=== PATIENT | male | born 1960 | race Caucasian/White ===

== ENCOUNTER 2023-10-27 09:52 | Outpatient (AMB) | payer OTHER, SELFPAY ==
--- NOTE | 2023-10-27 10:02 | MHC.PC.OV ---
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 Required: No Allergies No Known Allergies Allergy (Verified 10/27/23 10:02) Medication List - Last Reconciled 10/27/23 by Ez Zazueta MD minocycline 50 mg PO DAILY Tobacco use date assessed: 10/27/23 Fall risk assessment: No Falls in past year Last assessed Fall Risk: 10/27/23 Dental Screening Dental Screen Date: 10/27/23 Did you have a dental visit in the last 12 months?: Yes Did you have a dental problem in the last 6 months where you did not have access to dental care?: No Was dental information given to patient?: Patient has dentist [facility] Medical History (Updated 10/27/23 @ 10:48 by Shaka Hurley) GERD (gastroesophageal reflux disease) Arthritis Surgical History (Updated 10/27/23 @ 10:13 by Lorenza Johnson CMA) Hx of arthroscopy of right knee H/O arthroscopy of left knee Family History (Updated 10/27/23 @ 10:13 by Lorenza Johnson CMA) Maternal Grandmother Cancer Social History (Updated 10/27/23 @ 10:04 by Lorenza Johnson CMA) Housing: House Patient Tobacco Use Status: Never used Tobacco e-Cigarette/Vaping Use: Never Used Second Hand Smoke Exposure: No service: No Current occupational status: employed 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 How often do you have a drink containing alcohol?: Never 3. How often do you have six or more drinks on one occasion?: Never Total Score: 0 Physical exam (Primary Care) Vital Signs: Last Vital Signs Pulse 48 L 10/27/23 10:08 Resp 12 10/27/23 10:08 BP 122/60 10/27/23 10:08 Pulse Ox 98 10/27/23 10:08 Oxygen Delivery Method Room Air 10/27/23 10:08 BMI result Body Mass Index 23.8 Tobacco/Smoking Status: Tobacco use Status Tobacco use date assessed 10/27/23 10/27/23 10:10 Patient Tobacco Use Status Never used Tobacco 10/27/23 10:10 e-Cigarette/Vaping Use Never Used 10/27/23 10:10 PHQ-9: PHQ-9 Score PHQ-9: Total score 0 10/27/23 10:20 Thrive Assessment: Date of Thrive Assessment Date Thrive assessed 10/27/23 10/27/23 10:14 Assessment and Plan Assessment & Plan Orders: Orders Comprehensive [place]. Panel Fast Today Z00.00 - Encounter for general adult medical examination without abnormal findings Complete Blood Count Auto Diff Today Z00.00 - Encounter for general adult medical examination without abnormal findings Lipid Panel Today Z00.00 - Encounter for general adult medical examination without abnormal findings TSH reflex Free T4 Today Z00.00 - Encounter for general adult medical examination without abnormal findings UA and rflx microscopic Today Z00.00 - Encounter for general adult medical examination without abnormal findings Microalbumin, Random (w Creat) Today I10 - Essential (primary) hypertension Prostate Specific Antigen Scr Today Z12.5 - Encounter for screening for malignant neoplasm of prostate Vitamin B12 and Folate Today E53.8 - Deficiency of other specified B group vitamins Coding
--- NOTE | 2023-10-27 10:04 | MHC.PC.OV ---
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 ?? Prior PCP:?PCP in [place]. Dr Sparrow. Last office visit/CPE:? Acute issue(s):? Degenerative changes b/L Knees ?? PMHx:??Thrombocytopenia, dysphagia?with?vocal fold?deformity, Rosacea (Derm: Lottie Olmstead), Cataract SurgHx:? B/L Arthroscopy knees. Cataract surgeries FHx:? Mom: ?GI CA. Dad: Alz. SocHx:? Nonsmoker, EtoH None. No drugs PFSH Medical History (Updated 10/27/23 @ 10:48 by Shaka Hurley) GERD (gastroesophageal reflux disease) Arthritis Surgical History (Updated 10/27/23 @ 10:13 by Lorenza Johnson CMA) Hx of arthroscopy of right knee H/O arthroscopy of left knee Family History (Updated 10/27/23 @ 10:13 by Lorenza Johnson CMA) Maternal Grandmother Cancer Social History (Updated 10/27/23 @ 10:04 by Lorenza Johnson CMA) Housing: House Patient Tobacco Use Status: Never used Tobacco e-Cigarette/Vaping Use: Never Used Second Hand Smoke Exposure: No Use of substances other than those prescribed or required for medical reasons: No service: No Current occupational status: employed 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 1. Little interest or pleasure in doing things: not at all 2. Feeling down, depressed, or hopeless: not at all 3. Trouble falling or staying asleep, or sleeping too much: not at all 4. Feeling tired or having little energy: not at all 5. Poor appetite or overeating: not at all 6. Feeling bad about yourself - or that you are a failure or have let yourself or your family down: not at all 7. Trouble concentrating on things, such as reading the newspaper or watching television: not at all 8. Moving or speaking so slowly that other people could have noticed. Or the opposite - being so fidgety or restless that you have been moving around a lot more than usual: not at all 9. Thoughts that you would be better off or of hurting yourself in some way: not at all Total score: 0 Depression Screening Interpretation: Negative Depression Screening Done: Yes 22645 - PHQ-9 Billing: Yes Source: Developed by Drs. Car Chiang, Beatrice Joy, Sergio Bills and colleagues, with an educational isaac from [employer]. Thrive Questionnaire Date Thrive assessed: 10/27/23 I am a: Patient What is your living situation today?: I have a steady place to live Within the past 12 months, did the food you bought not last and you didn't have the money to get more?: Never true Within the past 12 months, did you worry whether your food would run out before you got money to buy more?: Never true Do you have trouble paying for medicines?: No Do you have trouble getting transportation to medical appointments?: No Do you have trouble paying your heating and electricity bill?: No Do you have trouble taking care of your child, family member or friend?: No Do you have trouble with day-to-day activities such as bathing, preparing meals, shopping, managing finances, etc.?: No Are you currently unemployed and looking for a job?: No Are you interested in more education?: No Please select the resources that you would like help with: None Currently or been in a relationship where the following occur: No concerns reported THRIVE Score: 0 AUDIT C Alcohol Use Questionnaire (AUDIT-C) 1. How often do you have a drink containing alcohol?: Never 3. How often do you have six or more drinks on one occasion?: Never Total Score: 0 ANTELMO-7 AMB Questionnaire ANTELMO-7 Date ANTELMO - 7 assessed: 10/27/23 Feeling nervous, anxious, or on edge: 0 = Not at all Not being able to stop or control worryin = Not at all Worrying too much about different things: 0 = Not at all Trouble relaxin = Not at all Being so restless that it is hard to sit still: 0 = Not at all Becoming easily annoyed or irritable: 0 = Not at all Feeling afraid as if something awful might happen: 0 = Not at all Total ANTELMO-7 score (0-4 normal; 5-9 mild; 10-14 moderate; 15-21 severe): 0 Source: Developed by Drs. Car Chiang, Beatrice Joy, Sergio Bills and colleagues, with an educational isaac from [employer]. ANTELMO-7 Assessment Billing ANTELMO-7 Assessment Tool: ANTELMO-7 Assessment 07946 Review of Systems Const Denies chills, Denies fatigue, Denies fever(s), Denies headache(s) and Denies weakness ENT Denies dizziness and Denies headache(s) Card Denies chest pain, Denies lightheadedness, Denies dyspnea and Denies other (Palpitations) Resp Denies cough, Denies dyspnea, Denies wheezing and Denies other ( shortness of breath) Musc Denies numbness and Denies tingling Neuro Denies dizziness, Denies headache(s), Denies numbness, Denies tingling, Denies paresthesias and Denies weakness Psych Denies anxiety and Denies depression Endo Denies fatigue Aller/Immun Denies wheezing Physical exam (Primary Care) Vital Signs: Last Vital Signs Pulse 48 L 10/27/23 10:08 Resp 12 10/27/23 10:08 BP 122/60 10/27/23 10:08 Pulse Ox 98 10/27/23 10:08 Oxygen Delivery Method Room Air 10/27/23 10:08 BMI result Body Mass Index 23.8 Tobacco/Smoking Status: Tobacco use Status Tobacco use date assessed 10/27/23 10/27/23 10:10 Patient Tobacco Use Status Never used Tobacco 10/27/23 10:10 e-Cigarette/Vaping Use Never Used 10/27/23 10:10 PHQ-9: PHQ-9 Score PHQ-9: Total score 0 10/27/23 10:14 Depression Screening Interpretation: Negative Thrive Assessment: Date of Thrive Assessment Date Thrive assessed 10/27/23 10/27/23 10:14 Currently or been in a relationship where the following occur: No concerns reported Const General: no acute distress and well developed Nutritional Appearance: well nourished Orientation/consciousness: patient oriented x3 [facility] Head: Yes normocephalic and Yes atraumatic Eyes General: appearance normal, both eyes and all related structures Pupils: Equal, round and reactive pupils present EOM: EOMs intact bilaterally Resp Effort & Inspection: normal respiratory effort Auscultation: clear to auscultation bilaterally Cardio Rate: regular rate Rhythm: regular rhythm Heart sounds: S1 normal heart sound present, S2 normal heart sound present, no gallops, Murmur heart sound present (2/6 systolic murmur ) and no rubs Neuro General: patient oriented x3 and gait normal Cranial nerves: Yes Equal, round and reactive pupils present Psych Affect: normal affect Assessment and Plan Assessment & Plan (1) Thrombocytopenia: Code(s): D69.6 - Thrombocytopenia, unspecified Plan: Longstanding?thrombocytopenia?which?has?been?worked?up?previously. Asymptomatic Will?follow (2) Dysphagia: Code(s): R13.10 - Dysphagia, unspecified Plan: History?of?dysphagia?with?dry?foods. Small?vocal?fold?abnormality?was?seen?on?prior?barium?swallow?test Speech?language?pathology?had?recommended?avoiding?dry?foods No?further?workup?necessary?at?this?time (3) Rosacea: Code(s): L71.9 - Rosacea, unspecified Plan: He?is?on?minocycline Follow-up?with?dermatology?as?recommended (4) Bilateral knee pain: Code(s): M25.561 - Pain in right knee; M25.562 - Pain in left knee Plan: History?of?degenerative?arthritis?of?the?knee Encouraged?he?keep?quadriceps?strong He?will?let?me?know?if?he?wants?to?start?physical?therapy?or?a?referral?to?Ortho - he?declines?these?for?now (5) Heart murmur: Code(s): R01.1 - Cardiac murmur, unspecified Plan: Lifelong?murmur-benign (6) Screening for colon cancer: Code(s): Z12.11 - Encounter for screening for malignant neoplasm of colon Plan: History?of?colonoscopy?about?5?years?ago. He?says?he?was?told?to?follow-up?subsequently?with?Cologuard?tests?in?the?future Will?follow-up?on?this?at?next?visit (7) Laboratory exam ordered as part of routine general medical examination: Code(s): Z00.00 - Encounter for general adult medical examination without abnormal findings Plan: Check?labs Orders: Orders Comprehensive [place]. Panel Fast Today Z00.00 - Encounter for general adult medical examination without abnormal findings Complete Blood Count Auto Diff Today Z00.00 - Encounter for general adult medical examination without abnormal findings Lipid Panel Today Z00.00 - Encounter for general adult medical examination without abnormal findings TSH reflex Free T4 Today Z00.00 - Encounter for general adult medical examination without abnormal findings UA and rflx microscopic Today Z00.00 - Encounter for general adult medical examination without abnormal findings Microalbumin, Random (w Creat) Today I10 - Essential (primary) hypertension Prostate Specific Antigen Scr Today Z12.5 - Encounter for screening for malignant neoplasm of prostate Vitamin B12 and Folate Today E53.8 - Deficiency of other specified B group vitamins Coding Level of Care Code New Pt Level 4 (61138) Diagnoses Thrombocytopenia D69.6 Dysphagia R13.10 Rosacea L71.9 Bilateral knee pain M25.561; M25.562 Heart murmur R01.1 Screening for colon cancer Z12.11 Laboratory exam ordered as part of routine general medical examination Z00.00 Additional Codes ANTELMO-7 Assessment Billing - ANTELMO-7 Assessment Tool: ANTELMO-7 Assessment [id number] ([id number])
[2023-10-27 10:08] VITALS: BP 122/60; PULSE 48; RESP 12; O2SAT 98; BMI 23.8
== END 2023-10-27 10:58 | disposition home or self-care (01) ==
PROVIDERS: PCP Family Medicine; Visit Provider Family Medicine
DX: D69.6 Thrombocytopenia, unspecified (principal); R13.10 Dysphagia, unspecified; L71.9 Rosacea, unspecified; M25.561 Pain in right knee; M25.562 Pain in left knee; R01.1 Cardiac murmur, unspecified; Z12.11 Encounter for screening for malignant neoplasm of colon
CPT/HCPCS: 99204

== ENCOUNTER 2024-01-18 08:07 | Outpatient (REF) | payer OTHER, SELFPAY ==
[2024-01-18 10:39] LABS: MANUAL DIFF FLAG NO
[2024-01-18 10:48] LABS: Basophils Percent Auto 0.5 % (0-2); Eosinophils Absolute Auto 0.1 X10*3/uL (0.0-0.4); Eosinophils Percent Auto 2.2 % (0-4); Hematocrit 42.5 % (42.0-52.0); Hemoglobin 14.5 g/dl (14.0-18.0); Imm Gran Abs Auto 0.02 X10*3/uL (0.00-0.03); Imm Gran Pct Auto 0.5 % (0.0-0.4); Lymphocytes Percent Auto 24.9 % (20-40); Mean Corpuscular HGB Conc 34.1 g/dl (31.0-36.0); Mean Corpuscular Hemoglobin 29.4 pg (27.0-33.0); Mean Corpuscular Volume 86.2 fL (80.0-98.0); Monocytes Absolute Auto 0.3 X10*3/uL (0.1-1.2); Monocytes Percent Auto 6.7 % (2-11); Neutrophils Absolute Auto 2.7 x10*3/uL (2.0-8.3); Neutrophils Percent Auto 65.2 % (45-73); Red Blood Count 4.93 X10*6/uL (4.60-5.80); Red Cell Distribution Width 14.2 % (11.0-16.0); White Blood Count 4.2 X10*3/uL (4.8-10.8)
[2024-01-18 11:07] LABS: Alanine Aminotransferase 22 U/L (0-40); Albumin Level 4.2 g/dL (3.5-5.0); Alkaline Phosphatase 85 U/L (39-117); Anion Gap 10 (12-20); Aspartate Amino Transferase 23 U/L (5-37); Bilirubin Total 1.6 mg/dL (0.0-1.0); Blood Urea Nitrogen 19 mg/dL (9-16); Calcium 9.8 mg/dL (8.4-10.2); Carbon Dioxide 29 mmol/L (22-29); Chloride 107 mmol/L (96-108); Cholesterol 151 mg/dL (<200); Estimated Glomerular Filt Rate > 60; Glucose Fasting 102 mg/dL (60-99); HDL Cholesterol 36 mg/dL (>40); LDL Cholesterol Calculated 94 mg/dL (<100); Potassium 4.3 mmol/L (3.3-5.1); Sodium 142 mmol/L (135-145); Total Protein 6.8 g/dL (6.5-8.0); Triglycerides 107 mg/dL (<150)
[2024-01-18 11:38] LABS: Folate 8.3 ng/mL (> or = 4.0); Prostate Specific Antigen Scr 2.89 ng/mL (<0.05-4.0); Vitamin B12 467 pg/mL (200-900)
[2024-01-18 11:44] LABS: Platelet Count 74 X10*3/uL (160-400)
[2024-01-18 13:56] LABS: Appearance Urine Clear; Color Urine Yellow; Glucose Urine UA Negative (Negative); Leukocyte Esterase Urine Negative (Negative); Nitrite Urine Negative (Negative); PH 5.5 (5.0-9.0); Urine Blood Negative (Negative); Urine Ketones Negative (Negative); Urine Protein Negative (Neg-Trace)
[2024-01-18 14:13] LABS: Creatinine Urine 143.59 mg/dL; Microalbum/Creatinine Ratio Ur 7.6 ug/mg cr (<30)
== END 2024-01-18 08:08 | disposition home or self-care (01) ==
LOC: HO.WFDLDS 08:07
PROVIDERS: Visit Provider Family Medicine
DX: Z00.00 Encounter for general adult medical examination without abnormal findings (principal); I10 Essential (primary) hypertension; E53.8 Deficiency of other specified B group vitamins; Z12.5 Encounter for screening for malignant neoplasm of prostate
CPT/HCPCS: 36415; 80053; 80061; 81003; 82043; 82570; 82607; 82746; 84153; 84443; 85025

== ENCOUNTER 2024-01-22 09:05 | Outpatient (AMB) | payer OTHER, SELFPAY ==
--- NOTE | 2024-01-22 09:11 | A.OFFPC_ITS ---
Vital Signs 01/22/24 09:14 Height 6 ft 0.25 in Weight 177 lb BMI 23.8 BP 117/58 L Blood Pressure Location Rt brachial Position Sitting Respiration 14 Pulse 59 Pulse Source Pulse Oximeter Temp 98.8 F Temp Source Temporal Artery Scan Pulse Oximetry (%) 100 Oxygen Delivery Method Room Air Intake Visit Reasons: CPE with f/u labs and health maint. 30 mins Intake Note: CPE Allergies No Known Allergies Allergy (Verified 01/22/24 09:12) Medication List - Last Reconciled 01/22/24 by Ez Zazueta MD minocycline 50 mg PO DAILY Tobacco use date assessed: 01/22/24 Fall risk assessment: No Falls in past year Last assessed Fall Risk: 01/22/24 Dental Screening Dental Screen Date: 01/22/24 Did you have a dental visit in the last 12 months?: Yes Did you have a dental problem in the last 6 months where you did not have access to dental care?: No Was dental information given to patient?: Patient has dentist HPI CPE with f/u labs and health maint. 30 mins HPI Details 63 y/o male presents for a CPE with f/u labs and health maintenance. Labs drawn 01/18/24. Reviewed labs with pt. Plt low at 74. Triglycerides 107. TC 151. LDL 94. HDL low at 36. PSA 2.89. He states he has not been doing much exercise. HPI Comments History of Present Illness Details Documentation assistance for Ez Zazueta MD, was provided by Shaka Hurley, Thread Clipper on 01/22/2024 at 9:34 AM EST. I, Dr. Zazueta, have read, observed, and verified documentation. PFSH Medical History (Updated 01/22/24 @ 09:18 by Shaka Hurley) GERD (gastroesophageal reflux disease) Arthritis Surgical History (Updated 10/27/23 @ 10:13 by Lorenza Johnson CMA) Hx of arthroscopy of right knee H/O arthroscopy of left knee Family History (Updated 10/27/23 @ 10:13 by Lorenza Johnson CMA) Maternal Grandmother Cancer Social History (Updated 01/22/24 @ 09:13 by MOISES Pepper) Housing: House Patient Tobacco Use Status: Never used Tobacco e-Cigarette/Vaping Use: Never Used Second Hand Smoke Exposure: No Use of substances other than those prescribed or required for medical reasons: No service: No Current occupational status: employed 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 1. Little interest or pleasure in doing things: not at all 2. Feeling down, depressed, or hopeless: not at all 3. Trouble falling or staying asleep, or sleeping too much: not at all 4. Feeling tired or having little energy: not at all 5. Poor appetite or overeating: not at all 6. Feeling bad about yourself - or that you are a failure or have let yourself or your family down: not at all 7. Trouble concentrating on things, such as reading the newspaper or watching television: not at all 8. Moving or speaking so slowly that other people could have noticed. Or the opposite - being so fidgety or restless that you have been moving around a lot more than usual: not at all 9. Thoughts that you would be better off or of hurting yourself in some way: not at all Total score: 0 Depression Screening Interpretation: Negative Depression Screening Done: Yes 18141 - PHQ-9 Billing: Yes Source: Developed by Drs. Car Chiang, Beatrice Joy, Sergio Bills and colleagues, with an educational isaac from [employer]. Thrive Questionnaire Date Thrive assessed: 01/22/24 I am a: Patient What is your living situation today?: I have a steady place to live Within the past 12 months, did the food you bought not last and you didn't have the money to get more?: Never true Within the past 12 months, did you worry whether your food would run out before you got money to buy more?: Never true Do you have trouble paying for medicines?: No Do you have trouble getting transportation to medical appointments?: No Do you have trouble paying your heating and electricity bill?: No Do you have trouble taking care of your child, family member or friend?: No Do you have trouble with day-to-day activities such as bathing, preparing meals, shopping, managing finances, etc.?: No Are you currently unemployed and looking for a job?: No Are you interested in more education?: No Please select the resources that you would like help with: None Currently or been in a relationship where the following occur: No concerns reported THRIVE Score: 0 AUDIT C Alcohol Use Questionnaire (AUDIT-C) 1. How often do you have a drink containing alcohol?: Never 3. How often do you have six or more drinks on one occasion?: Never Total Score: 0 Score Reviewed/Action Taken: Yes ANTELMO-7 AMB Questionnaire ANTELMO-7 Date ANTELMO - 7 assessed: 01/22/24 Feeling nervous, anxious, or on edge: 0 = Not at all Not being able to stop or control worryin = Not at all Worrying too much about different things: 0 = Not at all Trouble relaxin = Not at all Being so restless that it is hard to sit still: 0 = Not at all Becoming easily annoyed or irritable: 0 = Not at all Feeling afraid as if something awful might happen: 0 = Not at all Total ANTELMO-7 score (0-4 normal; 5-9 mild; 10-14 moderate; 15-21 severe): 0 Source: Developed by Drs. Car Chiang, Beatrice Joy, Sergio Bills and colleagues, with an educational isaac from [employer]. ANTELMO-7 Assessment Billing ANTELMO-7 Assessment Tool: ANTELMO-7 Assessment 60841 Review of Systems Const Denies chills, Denies fatigue, Denies fever(s), Denies headache(s) and Denies weakness Eyes Denies change in vision ENT Denies dizziness, Denies headache(s), Denies hearing loss, Denies nasal congestion, Denies sinus pain, Denies sinus pressure and Denies sore throat Card Denies chest pain, Denies lightheadedness, Denies dyspnea and Denies other (palpitations) Resp Denies cough, Denies dyspnea and Denies wheezing GI Denies abdominal pain, Denies melena, Denies hematochezia, Denies change in bowel habits, Denies dyspepsia and Denies nausea Denies hematuria and Denies dysuria Musc Denies abnormal gait, Denies myalgias, Denies arthralgias, Denies numbness and Denies tingling Skin/Breast Denies rash, Denies unusual bruising and Denies wounds Neuro Denies abnormal gait, Denies dizziness, Denies headache(s), Denies memory loss, Denies numbness, Denies Sensory deficit (Neuro), Denies tingling and Denies weakness Psych Denies anxiety, Denies depression and Denies memory loss Endo Denies cold intolerance, Denies fatigue, Denies heat intolerance, Denies polydipsia and Denies polyuria Pepe/Lymph Denies easy bleeding and Denies easy bruising Aller/Immun Denies wheezing Physical exam (Primary Care) Vital Signs: Last Vital Signs Temp 98.8 F 01/22/24 09:14 Pulse 59 01/22/24 09:14 Resp 14 01/22/24 09:14 BP 117/58 L 01/22/24 09:14 Pulse Ox 100 01/22/24 09:14 Oxygen Delivery Method Room Air 01/22/24 09:14 BMI result Body Mass Index 23.8 Tobacco/Smoking Status: Tobacco use Status Tobacco use date assessed 01/22/24 01/22/24 09:17 Patient Tobacco Use Status Never used Tobacco 01/22/24 09:17 e-Cigarette/Vaping Use Never Used 01/22/24 09:17 PHQ-9: PHQ-9 Score PHQ-9: Total score 0 01/22/24 09:17 Depression Screening Interpretation: Negative Thrive Assessment: Date of Thrive Assessment Date Thrive assessed 01/22/24 01/22/24 09:17 Currently or been in a relationship where the following occur: No concerns reported Const General: no acute distress, well developed, alert and awake Nutritional Appearance: well nourished Orientation/consciousness: patient oriented x3 HENMT Head: Yes normocephalic and Yes atraumatic Ears: hearing grossly normal bilaterally and TM's normal bilaterally General nose exam: Normal external nose present and Normal nares present Mouth: Normal oral and palatal mucosa present and moist mucous membranes Teeth and gingiva: dentition normal Throat: Yes posterior oropharynx normal Eyes General: appearance normal, both eyes and all related structures Pupils: Equal, round and reactive pupils present and Pupil accommodation reflex normal EOM: EOMs intact bilaterally Neck Neck: Yes normal visual inspection, Yes no lymphadenopathy and Yes trachea midline Thyroid: Thyroid normal Carotids: no bruits Lymphatic: no lymphadenopathy noted Chest Chest palpation & inspection: normal inspection of the chest Resp Effort & Inspection: normal respiratory effort Auscultation: clear to auscultation bilaterally Cardio Rate: regular rate Rhythm: regular rhythm Heart sounds: S1 normal heart sound present, S2 normal heart sound present, no gallops, Murmur heart sound present and no rubs Bruits: no abdominal aortic bruits and no carotid bruits GI Palpation (GI): No Abdominal aortic bruit present, Soft to palpation, nontender, No hepatosplenomegaly present and No Rebound tenderness present Auscultation: normal bowel sounds General: Yes no CVA tenderness Back/Spine/Pelvis Back: no CVA tenderness Cervical Spine: cervical ROM normal and No Cervical spine tenderness Thoracic/Lumbar Spine: thoraco-lumbar ROM normal, No pain with thoraco-lumbar ROM, No thoracic spinal tenderness and No lumbar spinal tenderness Skin Lesions: no lesions Rashes: no rashes Trauma: no lacerations or abrasions Wounds: no wounds Nails: normal Neuro General: patient oriented x3 Cranial nerves: Yes Equal, round and reactive pupils present Cognition (Neuro): normal cognition Gait exam (Neuro): Normal gait present Motor exam (neuro): 5/5 motor strength present throughout Sensory Exam: No Sensory deficit (Neuro) Deep tendon reflexes (DTR's): Right patellar reflex intensity grade: 2+ and Left patellar reflex intensity grade: 2+ Extrem General: Yes normal to inspection and No edema Psych Appearance: grossly normal Affect: normal affect Attitude: cooperative Thought process: Normal thought process present Coding Level of Care Code Est Pt Prev Care >65y(74460) Diagnoses Adult general medical exam Z00.00 Thrombocytopenia D69.6 Heart murmur R01.1 Screening for colon cancer Z12.11 Screening for prostate cancer Z12.5 Low HDL (under 40) E78.6 Additional Codes ANTELMO-7 Assessment Billing - ANTELMO-7 Assessment Tool: ANTELMO-7 Assessment 64708 ([id number]) Assessment & Plan Assessment & Plan (1) Adult general medical exam: Code(s): Z00.00 - Encounter for general adult medical examination without abnormal find ings Category: Medical Plan: 63-year-old?male?presents?for?complete?physical?exam Encouraged?healthy?diet?with?active?lifestyle?and?plenty?of?exercise (2) Thrombocytopenia: Code(s): D69.6 - Thrombocytopenia, unspecified Category: Medical Plan: Patient?notes?a?lifelong?thrombocytopenia?which?has?been?worked?up?in?the?past. Stable He?will?let?me?know?if?he?has?any?bleeding?issues?but?at?this?time?he?does?not. (3) Heart murmur: Code(s): R01.1 - Cardiac murmur, unspecified Category: Medical Plan: Lifelong?murmur Unchanged Stable (4) Screening for colon cancer: Code(s): Z12.11 - Encounter for screening for malignant neoplasm of colon Category: Medical Plan: Patient?had?colonoscopy?at?age?58?and?was?told?to?follow-up?in?10?years?and?coul d?follow-up?by?Cologuard?test. Up-to-date (5) Screening for prostate cancer: Code(s): Z12.5 - Encounter for screening for malignant neoplasm of prostate Category: Medical Plan: PSA?was?within?normal?range Will?continue?to?follow?annual (6) Low HDL (under 40): Code(s): E78.6 - Lipoprotein deficiency Category: Medical Plan: Mildly?low?HDL.??Encouraged?exercise
[2024-01-22 09:14] VITALS: BP 117/58; PULSE 59; RESP 14; TEMP 37.1; O2SAT 100; BMI 23.8
== END 2024-01-22 09:53 | disposition home or self-care (01) ==
PROVIDERS: PCP Family Medicine; Visit Provider Family Medicine
DX: Z00.00 Encounter for general adult medical examination without abnormal findings (principal); D69.6 Thrombocytopenia, unspecified; R01.1 Cardiac murmur, unspecified; Z12.11 Encounter for screening for malignant neoplasm of colon; Z12.5 Encounter for screening for malignant neoplasm of prostate; E78.6 Lipoprotein deficiency

== ENCOUNTER → 2024-01-22 09:05 | Outpatient (BNVA) | payer OTHER, SELFPAY | PROVIDERS: PCP Family Medicine; Visit Provider Family Medicine | DX: Z00.00 Encounter for general adult medical examination without abnormal findings (principal); D69.6 Thrombocytopenia, unspecified; R01.1 Cardiac murmur, unspecified; E78.6 Lipoprotein deficiency | CPT/HCPCS: 96127 ==

== ENCOUNTER 2025-01-27 15:58 | Outpatient (AMB) | payer OTHER, SELFPAY ==
--- NOTE | 2025-01-27 16:01 | MHC.PC.OV ---
Vital Signs 01/27/25 16:06 Height 6 ft 1 in Weight 176 lb BMI 23.2 BP 116/62 Blood Pressure Location Rt brachial Position Sitting Respiration 14 Pulse 58 Pulse Source Pulse Oximeter Temp 98.5 F Temp Source Temporal Artery Scan Pulse Oximetry (%) 99 Oxygen Delivery Method Room Air Intake Visit Reasons: CPE with f/u labs and health maint. Intake Note: Carmelo presents in the office today for his annual physical and follow up to lab results. Patient has been experimenting with taking prednisone that was prescribed to his for sciatica pain. Allergies No Known Allergies Allergy (Verified 01/27/25 16:04) Medication List - Last Reconciled 01/27/25 by Ez Zazueta MD No Known Home Meds Tobacco use date assessed: 01/27/25 Dental Screening Dental Screen Date: 01/27/25 Did you have a dental visit in the last 12 months?: Yes Did you have a dental problem in the last 6 months where you did not have access to dental care?: No Was dental information given to patient?: Patient has dentist HPI CPE with f/u labs and health maint. HPI Details 64 y/o male presents for a CPE with f/u labs and health maint. No recent labs to review. Does have hx of elevated fasting glucose. Reports episode of back pain that radiated down to upper buttocks. HPI Comments History of Present Illness Details Documentation assistance for Ez Zazueta MD, was provided by Shaka Hurley,? [employer] Salesperson on 01/27/2025 at 4:22 PM EST. I, Dr. Zazueta, have read, observed, and verified documentation. ?? 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 1. Little interest or pleasure in doing things: not at all 2. Feeling down, depressed, or hopeless: not at all 3. Trouble falling or staying asleep, or sleeping too much: not at all 4. Feeling tired or having little energy: not at all 5. Poor appetite or overeating: not at all 6. Feeling bad about yourself - or that you are a failure or have let yourself or your family down: not at all 7. Trouble concentrating on things, such as reading the newspaper or watching television: not at all 8. Moving or speaking so slowly that other people could have noticed. Or the opposite - being so fidgety or restless that you have been moving around a lot more than usual: not at all 9. Thoughts that you would be better off or of hurting yourself in some way: not at all Total score: 0 Depression Screening Interpretation: Negative Depression Screening Done: Yes 60518 - PHQ-9 Billing: Yes Source: Developed by Drs. Car Chiang, Beatrice Joy, Sergio Bills and colleagues, with an educational isaac from [employer]. Thrive Questionnaire Date Thrive assessed: 01/27/25 I am a: Patient What is your living situation today?: I have a steady place to live Within the past 12 months, did the food you bought not last and you didn't have the money to get more?: Never true Within the past 12 months, did you worry whether your food would run out before you got money to buy more?: Never true Do you have trouble paying for medicines?: No Do you have trouble getting transportation to medical appointments?: No Do you have trouble paying your heating and electricity bill?: No Do you have trouble taking care of your child, family member or friend?: No Do you have trouble with day-to-day activities such as bathing, preparing meals, shopping, managing finances, etc.?: No Are you currently unemployed and looking for a job?: No Are you interested in more education?: No Please select the resources that you would like help with: None Currently or been in a relationship where the following occur: No concerns reported THRIVE Score: 0 AUDIT C Alcohol Use Questionnaire (AUDIT-C) 1. How often do you have a drink containing alcohol?: Never 3. How often do you have six or more drinks on one occasion?: Never Total Score: 0 ANTELMO-7 AMB Questionnaire ANTELMO-7 Date ANTELMO - 7 assessed: 01/27/25 Feeling nervous, anxious, or on edge: 0 = Not at all Not being able to stop or control worryin = Not at all Worrying too much about different things: 0 = Not at all Trouble relaxin = Not at all Being so restless that it is hard to sit still: 0 = Not at all Becoming easily annoyed or irritable: 0 = Not at all Feeling afraid as if something awful might happen: 0 = Not at all Total ANTELMO-7 score (0-4 normal; 5-9 mild; 10-14 moderate; 15-21 severe): 0 Source: Developed by Drs. Car Chiang, Beatrice Joy, Sergio Bills and colleagues, with an educational isaac from [employer]. ANTELMO-7 Assessment Billing ANTELMO-7 Assessment Tool: ANTELMO-7 Assessment 41593 Review of Systems Const Denies chills, Denies fatigue, Denies fever(s), Denies headache(s) and Denies weakness Eyes Denies change in vision ENT Denies dizziness, Denies headache(s), Denies hearing loss, Denies nasal congestion, Denies sinus pain, Denies sinus pressure and Denies sore throat Card Denies chest pain, Denies lightheadedness, Denies dyspnea and Denies other (palpitations) Resp Denies cough, Denies dyspnea and Denies wheezing GI Denies abdominal pain, Denies melena, Denies hematochezia, Denies change in bowel habits, Denies dyspepsia and Denies nausea Denies hematuria and Denies dysuria Musc Denies abnormal gait, Reports back pain, Denies myalgias, Denies arthralgias, Denies numbness and Denies tingling Skin/Breast Denies rash, Denies unusual bruising and Denies wounds Neuro Denies abnormal gait, Denies dizziness, Denies headache(s), Denies memory loss, Denies numbness, Denies Sensory deficit (Neuro), Denies tingling and Denies weakness Psych Denies anxiety, Denies depression and Denies memory loss Endo Denies cold intolerance, Denies fatigue, Denies heat intolerance, Denies polydipsia and Denies polyuria Pepe/Lymph Denies easy bleeding and Denies easy bruising Aller/Immun Denies wheezing Physical exam (Primary Care) Vital Signs: Last Vital Signs Temp 98.5 F 01/27/25 16:06 Pulse 58 01/27/25 16:06 Resp 14 01/27/25 16:06 BP 116/62 01/27/25 16:06 Pulse Ox 99 01/27/25 16:06 Oxygen Delivery Method Room Air 01/27/25 16:06 BMI result Body Mass Index 23.2 Tobacco/Smoking Status: Tobacco use Status Tobacco use date assessed 01/27/25 01/27/25 16:09 Patient Tobacco Use Status Never used Tobacco 01/27/25 16:05 e-Cigarette/Vaping Use Never Used 01/27/25 16:05 PHQ-9: PHQ-9 Score PHQ-9: Total score 0 01/27/25 16:14 Depression Screening Interpretation: Negative Thrive Assessment: Date of Thrive Assessment Date Thrive assessed 01/27/25 01/27/25 16:03 Currently or been in a relationship where the following occur: No concerns reported Const General: no acute distress, well developed, alert and awake Nutritional Appearance: well nourished Orientation/consciousness: patient oriented x3 HENMT Other: Lump to the R of midline, anterior throat Head: Yes normocephalic and Yes atraumatic Ears: hearing grossly normal bilaterally and TM's normal bilaterally General nose exam: Normal external nose present and Normal nares present Mouth: Normal oral and palatal mucosa present and moist mucous membranes Teeth and gingiva: dentition normal Throat: Yes posterior oropharynx normal Eyes General: appearance normal, both eyes and all related structures Pupils: Equal, round and reactive pupils present and Pupil accommodation reflex normal EOM: EOMs intact bilaterally Neck Neck: Yes normal visual inspection, Yes no lymphadenopathy and Yes trachea midline Thyroid: Thyroid normal Carotids: no bruits Lymphatic: no lymphadenopathy noted Chest Chest palpation & inspection: normal inspection of the chest Resp Effort & Inspection: normal respiratory effort Auscultation: clear to auscultation bilaterally Cardio Rate: regular rate Rhythm: regular rhythm Heart sounds: S1 normal heart sound present, S2 normal heart sound present, no gallops, no murmurs and no rubs Bruits: no abdominal aortic bruits and no carotid bruits GI Palpation (GI): No Abdominal aortic bruit present, Soft to palpation, nontender, No hepatosplenomegaly present and No Rebound tenderness present Auscultation: normal bowel sounds General: Yes no CVA tenderness Back/Spine/Pelvis Back: no CVA tenderness Cervical Spine: cervical ROM normal and No Cervical spine tenderness Thoracic/Lumbar Spine: thoraco-lumbar ROM normal, No pain with thoraco-lumbar ROM, No thoracic spinal tenderness and No lumbar spinal tenderness Skin Lesions: no lesions Rashes: no rashes Trauma: no lacerations or abrasions Wounds: no wounds Nails: normal Neuro General: patient oriented x3 Cranial nerves: Yes Equal, round and reactive pupils present Cognition (Neuro): normal cognition Gait exam (Neuro): Normal gait present Motor exam (neuro): 5/5 motor strength present throughout Sensory Exam: No Sensory deficit (Neuro) Deep tendon reflexes (DTR's): Right patellar reflex intensity grade: 2+ and Left patellar reflex intensity grade: 2+ Extrem General: Yes normal to inspection and No edema Psych Appearance: grossly normal Affect: normal affect Attitude: cooperative Thought process: Normal thought process present Coding Level of Care Code Est Pt Level 3 (16808) Est Pt Prev Care >65y(60607) Diagnoses Adult general medical exam Z00.00 Elevated fasting glucose R73.01 Back pain M54.9 Lump in throat R22.1 Dysphagia R13.10 GERD (gastroesophageal reflux disease) K21.9 Screening for prostate cancer Z12.5 Additional Codes ANTELMO-7 Assessment Billing - ANTELMO-7 Assessment Tool: ANTELMO-7 Assessment 58319 ([id number]) PHQ-9 - 07694 - PHQ-9 Billing: Yes ([id number]) Assessment & Plan Assessment & Plan (1) Adult general medical exam: Code(s): Z00.00 - Encounter for general adult medical examination without abnormal findings Category: Medical Plan: 64-year-old male presents for complete physical exam Encouraged healthy diet with active lifestyle and plenty of exercise (2) Elevated fasting glucose: Code(s): R73.01 - Impaired fasting glucose Category: Medical Plan: Mildly elevated fasting blood sugar at last blood draw Will recheck this along with A1c Patient is currently taking prednisone so fasting blood sugar may be elevated by A1c would not expected to be so from short course of prednisone. (3) Back pain: Code(s): M54.9 - Dorsalgia, unspecified Category: Medical Plan: Okay intermittent back pain with sciatica symptoms down left leg He had started some prednisone which may be helping and we will continue a 5 day course. 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 I encouraged him to be sure he has good lumbar support and changes position frequently (4) Lump in throat: Code(s): R22.1 - Localized swelling, mass and lump, neck Category: Medical Plan: Mild asymmetry of anterior neck when he swallows He has mentioned that he used to have a sensation of lump in his throat Check ultrasound (5) Dysphagia: Code(s): R13.10 - Dysphagia, unspecified Category: Medical Plan: As above He says he has had swallowing studies and workup in the past without much explanation Checking ultrasound as above If he has symptoms will check swallowing study (6) GERD (gastroesophageal reflux disease): Code(s): K21.9 - Gastro-esophageal reflux disease without esophagitis Category: Medical Plan: Use famotidine as discussed He gets this OTC (7) Screening for prostate cancer: Code(s): Z12.5 - Encounter for screening for malignant neoplasm of prostate Category: Medical Plan: Check PSA Orders: Orders Complete Blood Count Auto Diff Today Z00.00 - Encounter for general adult medical examination without abnormal findings Comprehensive Diamond. Panel Fast Today Z00.00 - Encounter for general adult medical examination without abnormal findings Microalbumin, Random (w Creat) Today I10 - Essential (primary) hypertension US soft tiss head and/or neck Today R22.1 - Localized swelling, mass and lump, neck Erythrocyte Sedimentation Rate Today M54.9 - Dorsalgia, unspecified CRP High Sensitivity Today M54.9 - Dorsalgia, unspecified Prostate Specific Antigen Scr Today Z12.5 - Encounter for screening for malignant neoplasm of prostate Lipid Panel Today Z00.00 - Encounter for general adult medical examination without abnormal findings TSH reflex Free T4 Today Z00.00 - Encounter for general adult medical examination without abnormal findings UA CC w/rflx Micro + Cult Today Z00.00 - Encounter for general adult medical examination without abnormal findings Medications: New prednisone 20 mg PO DAILY 2 tabs 0RF 2 days meloxicam 15 mg PO DAILY 30 tabs 2RF 30 days
[2025-01-27 16:06] VITALS: BP 116/62; PULSE 58; RESP 14; TEMP 36.9; O2SAT 99; BMI 23.2
--- OUTSIDE RECORDS SUMMARY | 2025-01-27 17:09 | XMS_ITS | Clinical Summary ---
Author Organization [facility] Address [address] [address] Phone Care Team Providers Care Ell Tutor Name Role Phone Pcp, Unknown Primary Care Provider Unavailabl e Allergies No known active allergies Medications minocycline (MINOCIN) 50 MG capsule Take 1 capsule by mouth every morning. 04/07/2023 Active Social History Tobacco Use Types Packs/Day Years Used Date Smoking Tobacco: Never Assessed Education Answer Date Recorded Are you interested in more education? Not on yelena e 05/02/2023 Are you concerned about learning? Not on file 05/02/2023 No 05/02/2023 No 05/02/2023 Digital Access Answer Date Recorded No 05/02/2023 No 05/02/2023 Reliable internet access at home? Not on file 05/02/2023 Device with a working camera? Not on file Sex and Gender Information Value Date Recorded Sex Assigned at Not on file Legal Sex Male 12:13 PM EST Gender Identity Not on file Sexual Orientation Not on file Last Filed Vital Signs Vital Sign Reading Time Taken Comments Blood Pressure 141/77 05/02/2023 12:56 PM EST Pulse 68 05/02/2023 12:56 PM EST Temperature 37.2 C (98.9 F) 05/02/2023 12:56 PM EST Respiratory Rate 16 05/02/2023 12:56 PM EST Oxygen Saturation 100% 05/02/2023 12:56 PM EST Inhaled Oxygen Concentration - - Weight 78 kg (172 lb) 05/02/2023 12:56 PM EST Height 185.4 cm (6' 1 ) 05/02/2023 12:56 PM EST Body Mass Index 22.69 05/02/2023 12:56 PM EST Plan of Treatment Health Maintenance Due Date Last Done Comments Adult Td,Tdap Booster 1958 LIPID PANEL 1958 DEPRESSION SCREENING 1970 SMOKING Hx and SMOKELESS TOB ACCO SCREENING 08/25/1971 HEPATITIS C SCREENING 1976 COLOGUARD 08/25/2003 COLONOSCOPY 08/25/2003 COLORECTAL CANCER SCREENING 08/25/2003 FIT TEST 08/25/2003 FOBT 08/25/2003 SIGMOIDOSCOPY 08/25/2003 VIRTUAL COLONOSCOPY 08/25/2003 PNEUMOCOCCAL VACCINES (50+ y ears) (1 of 1 - PCV) 2008 ZOSTER VACCINES (1 of 2) 2008 INFLUENZA VACCINE (#1) 2024 COVID-19 VACCINE ( - 2024-2 6 season) 2024 RSV VACCINE (1 - 1-dose 75+ series) 2033 HEPATITIS A VACCINES Aged Out No long er eligible based on patient's age to complete this topic HIB VACCINES Aged Out No longer eligi ble based on patient's age to complete this topic MENINGOCOCCAL VACCINES (ACWY) Aged Out No longer eligible based on patient's age to complete this topic MENINGOCOCCAL VACCINES (B) Aged Out N o longer eligible based on patient's age to complete this topic Medical Devices Not on file Insurance CIGNA PPO CIGNA PPO CIGNA PPO CIGNA PPO CIGNA PPO [facility] PPO Care Teams Ell Tutor Relationship Specialty Start Date End Date Pcp, Unknown PCP - General 05/02/23 Additional Source Comments The information contained in this document represents components of the legal health record. It is not the complete legal health record.[facility]
--- OUTSIDE RECORDS SUMMARY | 2025-01-27 17:10 | XMS_ITS | Patient Health Record ---
Author Organization [facility] Address [address] [place] [address] Support Name Relationship Address Phone Carmelo Lemus Guarantor Unknown Unavailable Reason For Referral No Information Problems Problem Type SNOMED Code ICD Code Onset Dates Problem Status W/U Status Risk Notes Problem Ingrowing nail ([id number]) Ingrowing nail (L60.0) 03/18/2021 Active confirmed Plan Of Treatment No Information Insurance Providers Payer Name Payer Address Payer Phone Subscriber Number Group Number Insured Name Patient Relationship to Insured Coverage Start Date Coverage End Date [facility] [address] [place] [address] [id number] Carmelo Lemus Self - patient is the insured [facility] [address] [address] [place] [phone] [id number] Carmelo Lemus Self - patient is the insured
== END 2025-01-27 16:52 | disposition home or self-care (01) ==
LOC: HO.HMCFM 15:59
PROVIDERS: PCP Family Medicine; Visit Provider Family Medicine
DX: Z00.00 Encounter for general adult medical examination without abnormal findings (principal); R73.01 Impaired fasting glucose; M54.9 Dorsalgia, unspecified; R22.1 Localized swelling, mass and lump, neck; R13.10 Dysphagia, unspecified; K21.9 Gastro-esophageal reflux disease without esophagitis; Z12.5 Encounter for screening for malignant neoplasm of prostate

== ENCOUNTER → 2025-01-27 15:58 | Outpatient (BNVA) | payer OTHER, SELFPAY | PROVIDERS: PCP Family Medicine; Visit Provider Family Medicine | DX: Z00.00 Encounter for general adult medical examination without abnormal findings (principal); R73.01 Impaired fasting glucose; M54.9 Dorsalgia, unspecified; R22.1 Localized swelling, mass and lump, neck; R13.10 Dysphagia, unspecified; K21.9 Gastro-esophageal reflux disease without esophagitis | CPT/HCPCS: 96127 ==

== ENCOUNTER 2025-01-28 09:16 | Outpatient (REF) | payer OTHER, SELFPAY ==
[2025-01-28 09:31] LABS: MANUAL DIFF FLAG NO
[2025-01-28 09:55] LABS: Hematocrit 42.8 % (42.0-52.0); Hemoglobin 14.6 g/dl (14.0-18.0); Imm Gran Abs Auto 0.04 X10*3/uL (0.00-0.03); Imm Gran Pct Auto 0.5 % (0.0-0.4); Lymphocytes Absolute Auto 1.4 X10*3/uL (1.2-4.9); Mean Corpuscular HGB Conc 34.1 g/dl (31.0-36.0); Mean Corpuscular Hemoglobin 29.2 pg (27.0-33.0); Mean Corpuscular Volume 85.6 fL (80.0-98.0); NRBC Abs Auto 0.000 X10*3/uL (0.0-0.012); NRBC Pct Auto 0.0 /100WBC (0.0-0.2); Red Blood Count 5.00 X10*6/uL (4.60-5.80); White Blood Count 8.1 X10*3/uL (4.8-10.8)
[2025-01-28 10:17] LABS: Platelet Count 62 X10*3/uL (160-400)
[2025-01-28 10:26] LABS: Appearance Urine Clear; Glucose Urine UA Negative (Negative); PH 5.5 (5.0-9.0); Specific Gravity - Urine 1.025 (1.005-1.025); UMIC TRIGGER UACC YES
[2025-01-28 10:37] LABS: Alanine Aminotransferase 21 U/L (0-40); Albumin Level 4.4 g/dL (3.5-5.0); Alkaline Phosphatase 76 U/L (39-117); Anion Gap 11 (12-20); Aspartate Amino Transferase 24 U/L (5-37); Blood Urea Nitrogen 21 mg/dL (9-16); Calcium 9.9 mg/dL (8.4-10.2); Carbon Dioxide 26 mmol/L (22-29); Chloride 109 mmol/L (96-108); Cholesterol 155 mg/dL (<200); Estimated Glomerular Filt Rate > 60; HDL Cholesterol 41 mg/dL (>40); Potassium 4.1 mmol/L (3.3-5.1); Sodium 142 mmol/L (135-145); Total Protein 6.7 g/dL (6.5-8.0); Triglycerides 97 mg/dL (<150)
[2025-01-28 10:56] LABS: Microalbum/Creatinine Ratio Ur 9.6 ug/mg cr (<30)
== END 2025-01-28 09:17 | disposition home or self-care (01) ==
LOC: HO.LAB 09:16
PROVIDERS: PCP Family Medicine; Visit Provider Family Medicine
DX: Z00.00 Encounter for general adult medical examination without abnormal findings (principal); Z12.5 Encounter for screening for malignant neoplasm of prostate; I10 Essential (primary) hypertension; M54.9 Dorsalgia, unspecified
CPT/HCPCS: 36415; 80053; 80061; 81001; 82043; 82570; 84153; 84443; 85025; 85652; 86141

== ENCOUNTER 2025-03-28 11:44 | Outpatient (AMB) | payer OTHER, SELFPAY ==
--- NOTE | 2025-03-28 11:53 | MHC.PC.OV ---
Vital Signs 03/28/25 11:56 Height 6 ft 1 in Weight 178 lb 6 oz BMI 23.5 BP 112/62 Blood Pressure Location Rt brachial Position Sitting Respiration 15 Pulse 56 Pulse Source Pulse Oximeter Temp 98.4 F Temp Source Temporal Artery Scan Pulse Oximetry (%) 98 Oxygen Delivery Method Room Air Intake Visit Reasons: Lab review, ultrasound and lump on neck follow up Intake Note: Carmelo presents in the office today for a lab review and US review. President And Chief Executive Officer Required: No Allergies No Known Allergies Allergy (Verified 03/28/25 11:55) Medication List - Last Reconciled 03/28/25 by Ez Zazueta MD No Known Home Meds Tobacco use date assessed: 01/27/25 Dental Screening Dental Screen Date: 03/28/25 Did you have a dental visit in the last 12 months?: Yes Did you have a dental problem in the last 6 months where you did not have access to dental care?: No Was dental information given to patient?: Patient has dentist HPI Lab review, ultrasound and lump on neck follow up HPI Details 64 y/o male presents to f.u labs, ultrasound, chronic conditions. Pt notes he had went to the emergency department for anterior neck mass/mild asymmetry when swallowing with mass slightly to R of midline. Pt notes he had been following up with ENT and notes biopsy had been benign. Labs drawn 01/28/25. Reviewed labs with pt. Triglycerides 97. TC 155. LDL 95. HDL 41. Ongoing low platelets. Pt notes back pain resolved. 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 Current occupational exposures/hazards: No Cognitive needs: No Hearing needs: No Vision needs: No Questionnaire Thrive Questionnaire Date Thrive assessed: 01/24/25 I am a: Patient What is your living situation today?: I have a steady place to live Within the past 12 months, did the food you bought not last and you didn't have the money to get more?: Never true Within the past 12 months, did you worry whether your food would run out before you got money to buy more?: Never true Do you have trouble paying for medicines?: No Do you have trouble getting transportation to medical appointments?: No Do you have trouble paying your heating and electricity bill?: No Do you have trouble taking care of your child, family member or friend?: No Do you have trouble with day-to-day activities such as bathing, preparing meals, shopping, managing finances, etc.?: No Are you currently unemployed and looking for a job?: No Are you interested in more education?: No Please select the resources that you would like help with: None Currently or been in a relationship where the following occur: No concerns reported THRIVE Score: 0 ANTELMO-7 AMB Questionnaire ANTELMO-7 Date ANTELMO - 7 assessed: 01/27/25 Source: Developed by Drs. Car Chiang, Beatrice Joy, Sergio Bills and colleagues, with an educational isaac from [employer]. Review of Systems Const Denies chills, Denies fatigue, Denies fever(s), Denies headache(s) and Denies weakness ENT Denies dizziness and Denies headache(s) Card Denies dyspnea Resp Denies cough, Denies dyspnea, Denies wheezing and Denies other (shortness of breath) Musc Denies numbness and Denies tingling Neuro Denies dizziness, Denies headache(s), Denies numbness, Denies tingling and Denies weakness Psych Denies anxiety and Denies depression Endo Denies fatigue Aller/Immun Denies wheezing Physical exam (Primary Care) Vital Signs: Last Vital Signs Temp 98.4 F 03/28/25 11:56 Pulse 56 03/28/25 11:56 Resp 15 03/28/25 11:56 BP 112/62 03/28/25 11:56 Pulse Ox 98 03/28/25 11:56 Oxygen Delivery Method Room Air 03/28/25 11:56 BMI result Body Mass Index 23.5 Tobacco/Smoking Status: Tobacco use Status Tobacco use date assessed 01/27/25 03/28/25 11:55 Patient Tobacco Use Status Never used Tobacco 03/28/25 11:56 e-Cigarette/Vaping Use Never Used 03/28/25 11:56 Thrive Assessment: Date of Thrive Assessment Date Thrive assessed 01/24/25 03/28/25 11:55 Currently or been in a relationship where the following occur: No concerns reported Const General: well developed; No acute distress Nutritional Appearance: well nourished Orientation/consciousness: patient oriented x3 HENMT Head: Yes normocephalic and Yes atraumatic Eyes General: appearance normal, both eyes and all related structures Pupils: Equal, round and reactive pupils present EOM: EOMs intact bilaterally Resp Effort & Inspection: normal respiratory effort Neuro General: patient oriented x3 and gait normal Cranial nerves: Yes Equal, round and reactive pupils present Psych Affect: normal affect Coding Level of Care Code Est Pt Level 4 (45202) Diagnoses Mass in neck R22.1 Thrombocytopenia D69.6 Back pain M54.9 Thyroid nodule E04.1 Assessment & Plan Assessment & Plan (1) Mass in neck: Code(s): R22.1 - Localized swelling, mass and lump, neck Category: Medical Plan: Patient has seen ENT and had fine-needle aspiration which revealed a benign follicular nodule Still has significant size and mass effect with a hoarse voice and likely some affect from mass on his voice or the laryngeal nerve. Still has an appointment with the surgeon. Patient says he would like to avoid a surgery if possible however and would like a referral to endocrinology as well. Referred to endocrinology. Follow-up with surgeon as well. (2) Thrombocytopenia: Code(s): D69.6 - Thrombocytopenia, unspecified Category: Medical Plan: Worsening thrombocytopenia. Red cells and white cells are within normal range Elevated bilirubin Referring patient to Hematology-Oncology (3) Back pain: Code(s): M54.9 - Dorsalgia, unspecified Category: Medical Plan: This has resolved Keep core muscles strong Avoid poor body mechanics (4) Thyroid nodule: Code(s): E04.1 - Nontoxic single thyroid nodule Category: Medical Plan: Large thyroid nodule which is shown to be a benign follicular thyroid nodule by fine-needle aspiration As above, patient would like follow-up with endocrinology and I advised he also follow-up with urgent. Patient agrees. Orders: Referrals Endocrinology Referral E04.1 - Nontoxic single thyroid nodule Hematology & Oncology Referral D69.6 - Thrombocytopenia, unspecified
[2025-03-28 11:56] VITALS: BP 112/62; PULSE 56; RESP 15; TEMP 36.9; O2SAT 98; BMI 23.5
--- OUTSIDE RECORDS SUMMARY | 2025-03-28 13:04 | XMS_ITS | Data Portability ---
Author Organization [place] - [facility], Allergy Address [address] [facility] 100 [place] [address] Care Team Providers Care Tallow Pumper Name Role Phone MOHAN HERNANDEZ Primary Care Provider Assessment No assessment recorded. Plan of Treatment Reminders Order Date Submit Date Provider Last Modified By Organization Details Last Modified Time Details Appointments Establi shed 15 2025 09:45A M SHANDA PADILLA MD Not available Not available Not available Lab None recorde d. Referral None recorde d. Procedures fine needle aspirat ion, ultraso und guided, thyroid (PROC) - evaluat e 4.5cm thyroid nodule seen on CT [address] Interventional Radiology, [address] [place] [address], [id number], 03/13/2025 11:29:16 Surgeries None recorde d. Imaging US, thyroid - evaluat e 4.5cm thyroid nodule seen on CT [address] Diagnostic Imaging, [address] [place] [address], [id number], 03/13/2025 11:22:25 Medication Orders None recorde d. Patient TargetsNo targets recorded. Patient InstructionsNo instructions recorded. Reason for Referral None Reported. Results Created Date Observation Date Name Description Value Unit Range Abnormal Flag Note LastModifiedBy Organization Detail LastModifiedTime 03/21/2003/21/2025 fine needl e aspir ation , ultra sound guide d, thyro id (PROC ) No observ ation record ed. [email or web address] [address], [address], 03/21/2025 12:42:47 03/21/20 25 03/21/2025 US, thyro id No observ ation record ed. [email or web address] [address], [address], 03/21/2025 15:03:54 Result Notes None recorded. Problems Name Problem SNOMED Code Status Onset Date Resolution Date Notes Provider Name and Address Organization Details Recorded Time Thyroid nodule 025380570 Active 025 ALINA MO MD 100 [facility],[place] [address], [place], [address] , [place] - [facility] 13:01:16 Mass of neck 002401205 Active 025 ALINA MO MD 100 [facility],[place] [address], [place], [address] , [facility] - [facility] 13:01:22 Problem Notes None recorded. Procedures Surgical History Date Name Laterality Status Provider Name and Address Organization Details Recorded Time 03/06/2025 FFL_RE completed ALINA MO MD [address] [place] [address],[place] [address], [place], [address], [facility] - [facility] 03/06/2025 13:01:27 Imaging Results None recorded. Procedure Notes None recorded. Medical Equipment None Reported. Medications Name Sig Start Date Stop Date Status Note LastModified by Organization Details LastModified Time meloxicam 15 mg tablet TAKE 1 TABLET BY MOUTH DAILY 03/01 completed Not Available Not Available Not Available prednisone 20 mg tablet TAKE 1 TABLET BY MOUTH DAILY FOR 2 DAYS 03/01 completed Not Available Not Available Not Available minocycline 50 mg capsule TAKE 1 CAPSULE BY MOUTH TWICE A DAY DIRECTED 03/01 completed Not Available Not Available Not Available Vitals Date Recorded Body height Body mass index (BMI) Body weight Systolic And Diastolic Provider Name and Address Organization Details Last Updated DateTime 03/06/2025 185.42 cm 24.3 kg/m2 15911 g 128/71 mm[Hg] Lashawn King [place] - [facility] 03/06/2025 13:04:54 Social History Question Answer Notes LastModified by Organizat ion Details LastModified Time Tobacco Smoking Status Never Smoker Lashawn goodson [place] - [facility] 03/06/2025 13:05:17 What Type Of Home Visits Nurse Do You Use? None Information not available 03/06/2025 Do You Have Any Pets? Yes Information not available 03/06/2025 Are You Passively Exposed To Smoke? No Information not available 03/06/2025 Are There Any Smokers In Your House? No Information not available 03/06/2025 Sex: Unknown Functional Status Question Answer Note LastModified by Organization Details LastModified Time Do you use any illicit or recreational drugs? No Information not available 03/06/2025 Do you or have you ever used any other forms of tobacco or nicotine? No Information not available 03/06/2025 What is your level of alcohol consumption? None Information not available 03/06/2025 What type of noise exposure are you exposed to? noExposureToExcessiveNoise Infor mation not available 03/06/2025 Mental Status None recorded. Family History Nothing Reported. Medical History Condition Response Allergies/Hayfever N Heart Problems N Anxiety N Tonsil Infections N Emphysema N Migraines N Thyroid Problems N Glaucoma N Depression N COPD N Developmental Delay N Nasal or Sinus Problems N Anemia N Immune System Disorder N Anesthesia Complications N Heart Attack (AL) N Other Skin Condition Y Diabetes N Rhinitis N Bleeding Disorder N Food Allergy N Arthritis N Hearing Loss N Hyperlipidemia N Cancer N Stroke N Dementia N Nasal polyps N Asthma N Sleep Disorder N GERD/Reflux Y High Cholesterol N Liver Disease N Headaches N Fibromyalgia N Hypertension N Speech Delay N Kidney Disease N Past Encounters Encounter ID Performer Location Encounter Start Date Encounter Closed Date Diagnosis/Indication Diagnosis SNOMED-CT Code Diagnosis ICD10 Code Diagnosis IMO Codes Diagnosis Note [id number] ALINA MO MD [facility] on [address] [place] [address] 03/06/2025 12:51:50 03/06/2025 13:24:25 Thyroid nodule 314504234 E04.1 27977 On exam I noted a 4.5cm firm, right sided nodule, firm. I recommend a dedicated thyroid ultrasound and given the size I recommend an ultrasound -guided fine-needl e aspiration biopsy. I will refer him to Dr. Padilla in case surgical interventi on is needed. I asked him to bring his thyroid function testing results to the next visit. I discussed the pathophysi ology of thyroid cancer. I discussed we do not know yet that this nodule is a cancer. I did discuss I am concerned given his size. I discussed that usually papillary thyroid cancer if that is what this is does not generally shorten once life. We will plan to work it up as above and I will arrange appropriat e follow-up with my colleague. Laryngosco py was unremarkab le today with normal vocal cord movement on both sides. Mass of neck 844977257 R 22.1 19066 His neck mass is his thyroid nodule. See above. Health Concerns Section Related Observation LastModified by Organization Detai ls LastModified Time None Recorded Concern Status LastModified by Organization Details LastModified Time None Recorded Advance Directives Directive None Recorded Payers Insurance Date Sequence Insurance Name Policy Number Policy Clinton Covered Member ID Clinton Member ID Guarantor Name 03/06/2025 1 ON LICENSE OF [facility] [id number] Carmelo Lemus [id number] Carmelo Lemus Notes Date Note Type Note Provider Name and Address Organization Details Recorded Time 03/06/2025 text/html ROS as noted in the HPI He presents with a left anterior neck mass found incidentally about a month ago by his PCP on routine exam. He presented 2 weeks later to the ER to have it evaluated. CT neck with contrast demonstrated a 4.6cm right thyroid nodule and US and FNA were recommended. Denies dysphagia to liquids and solids. Has some mild hoarseness. He does not smoke. No family hx of thyroid cancer. No hx of radiation to your neck. No hx of hypothyroidism. He had thyroid function testing at [place] which is not available to me today. ALINA MO MD [address] [place] [address], [place], [address], [facility] - [facility] 03/06/2025 13:25:47
--- OUTSIDE RECORDS SUMMARY | 2025-03-28 13:04 | XMS_ITS | Continuity of Care Document ---
Author Organization [place] - [facility], [facility] Address [address] [place] [address] Care Team Providers Care Pulley Maintainer Name Role Phone MOHAN HERNANDEZ Primary Care Provider [phone] Assessment No assessment recorded. Plan of Treatment Reminders Order Date Submit Date Provider Last Modified By Organization Details Last Modified Time Details Appointments Estab shed 15 2025 09:45A M SHANDA PADILLA MD Not available Not available Not available Lab None recorde d. Referral None recorde d. Procedures fine needle aspirat ion, ultraso und guided, thyroid (PROC) - evaluat e 4.5cm thyroid nodule seen on CT [address] Interventional Radiology, [address] [place] [address], [address], 03/13/2025 11:29:16 Surgeries None recorde d. Imaging US, thyroid - evaluat e 4.5cm thyroid nodule seen on CT [address] Diagnostic Imaging, [address] [place] [address], [id number], 03/13/2025 11:22:25 Medication Orders None recorde d. Patient TargetsNo targets recorded. Patient InstructionsNo instructions recorded. Reason for Referral None Reported. Results Created Date Observation Date Name Description Value Unit Range Abnormal Flag Note LastModifiedBy Organization Detail LastModifiedTime 03/21/2003/21/2025 fine needl e aspir ation , ultra sound guide d, thyro id (PROC ) No observ ation record ed. reppsteiner [facility] [address], [place], [address], 03/21/2025 12:42:47 03/21/20 25 03/21/2025 US, thyro id No observ ation record ed. [address], [address], 03/21/2025 15:03:54 Result Notes None recorded. Problems Name Problem SNOMED Code Status Onset Date Resolution Date Notes Provider Name and Address Organization Details Recorded Time Thyroid nodule 428614362 Active 025 ALINA MO MD [address] [facility],[place] [address], [place], [address] , [place] - [facility] 13:01:16 Mass of neck 347510861 Active 025 ALINA MO MD [address] [place] [address], [place], [address] , [place] - [facility] 13:01:22 Problem Notes None recorded. Procedures Surgical History Date Name Laterality Status Provider Name and Address Organization Details Recorded Time 03/06/2025 FFL_RE completed ALINA MO MD [address] [place] [address],[place] [address], [place], [address], [place] - [facility] 03/06/2025 13:01:27 Imaging Results None recorded. Procedure [...] Updated DateTime 03/06/2025 185.42 cm 24.3 kg/m2 00827 g 128/71 mm[Hg] Lashawn King [place] [facility] 03/06/2025 13:04:54 Social History Question Answer Notes LastModified by Organizat ion Details LastModified Time Tobacco Smoking Status Never Smoker Lashawn goodson [place] - [facility] 03/06/2025 13:05:17 What Type Of Folder Taper Operator Do You Use? None Information not available [...] noise exposure are you exposed to? noExposureToExcessiveNoise dennis Infor mation not available 03/06/2025 Mental Status None recorded. Family History Nothing Reported. Medical History Condition Response Allergies/Hayfever N Heart Problems N Anxiety N Tonsil Infections N Emphysema N Migraines N Thyroid Problems N Glaucoma N Developmental Delay N Depression N COPD N Nasal or Sinus Problems N Anemia N Immune System Disorder N Anesthesia Complications N Heart Attack (DC) N Other Skin Condition Y Diabetes N Rhinitis N Bleeding Disorder N Food Allergy N Hearing Loss N Arthritis N Hyperlipidemia N Cancer N Stroke N Dementia N Nasal polyps N Asthma N Sleep Disorder N High Cholesterol N GERD/Reflux Y Liver Disease N Headaches N Fibromyalgia N Hypertension N Speech Delay N Kidney Disease N Past Encounters Encounter ID Performer Location Encounter Start Date Encounter Closed Date Diagnosis/Indication Diagnosis SNOMED-CT Code Diagnosis ICD10 Code Diagnosis IMO Codes Diagnosis Note [id number] ALINA MO MD [facility] [address] [address] 03/06/2025 12:51:50 03/06/2025 13:24:25 Thyroid nodule 921801039 E04.1 06928 On exam I noted a 4.5cm firm, [...] movement on both sides. Mass of neck 033936748 R 22.1 [address] His neck mass is his thyroid nodule. See above. Health Concerns Section Related Observation LastModified by Organization Detai ls LastModified Time None Recorded Concern Status LastModified by Organization Details LastModified Time None Recorded Payers Encounter Date Sequence Insurance Name Policy Number Policy Clinton Covered Member ID Clinton Member ID Guarantor Name 03/06/2025 1 [facility] [id number] Carmelo Lemus [id number] Carmelo Lemus Notes Date Note Type [...] hypothyroidism. He had thyroid function testing at [place] which is not available to me today. ALINA MO MD [address] [place] [address], [place], [address], [facility] - [facility] 03/06/2025 13:25:47
--- OUTSIDE RECORDS SUMMARY | 2025-03-28 13:04 | XMS_ITS | Clinical Summary ---
Author Organization [facility] Address [address] [place] [address] [place] [phone] Phone Care Team Providers Care Rig Manager Name Role Phone Ez Zazueta MD Primary Care Provider Allergies No known active allergies Medications minocycline (MINOCIN) 50 MG capsule Take 1 capsule by mouth every morning. 04/07/2023 Active Encounters Date Type Department Care Team Description 03/21/2025 1:27 PM EST - 03/21/2025 11:59 PM [facility] Hospital Encounter [facility], [address] [address] Car Cook MD Discharge Disposition: Home or Self Care 03/21/2025 8:00 AM EST - 03/21/2025 8:41 AM EST Surgery [facility]ventional Radiology [address] [place] [id number] Lalito Kilpatrick DO Ultrasound Guided Fine Needle Aspiration 03/21/2025 7:22 AM EST - 03/21/2025 11:45 PM [facility] Hospital Encounter [facility] Radiology [address] [place] [address] Lalito Kilpatrick DO Blackman, Gregory Edward, MD Discharge Disposition: Home or Self Care 03/21/2025 Procedure Pass [facility]ventional Radiology [address] [place] [address] 03/07/2025 Transcribe Orders Virtual Department [address] [place] [id number] Car Cook MD Nontoxic uninodular goiter (Primary Dx) 02/24/2025 3:12 PM EST - 02/24/2025 6:51 PM EST Emergency [facility] [address] [place] [address] Discharge Disposition: Home or Self Care 02/24/2025 Procedure Pass [facility], Ct Scan - [facility] [address] [place] [address] from Last 3 Months Social History Tobacco Use Types Packs/Day Years [...] with a working camera? Not on file Intimate Partner Violence Answer Date R ecorded Are you denied basic needs s uch as food, clothing, or medical care? No 03/21/2025 In the past 12 months have y ou been in a relationship with a person who hurts, threatens, or tries to control you? No 03/21/2025 Are you denied basic needs s uch as food, clothing, or medical care? No 03/21/2025 In the past 12 months have y ou been in a relationship with a person who hurts, threatens, or tries to control you? No 03/21/2025 Sex and Gender Information Value Date Recorded Sex Assigned at Not on file Legal Sex Male 12:13 PM EST Gender Identity Not on file Sexual Orientation Not on file Last Filed Vital Signs Vital Sign Reading Time Taken Comments Blood Pressure 128/71 02/24/2025 6:50 PM EST Pulse 53 02/24/2025 6:50 PM EST Temperature 36.3 C (97.3 F) 02/24/2025 2:31 PM EST Respiratory Rate 18 02/24/2025 6:50 PM EST Oxygen Saturation 100% 02/24/2025 6:50 PM EST Inhaled Oxygen Concentration - - Weight 83.5 kg (184 lb) 02/24/2025 2:31 PM EST Height 185.4 cm (6' 1 ) 02/24/2025 2:31 PM EST Body Mass Index 24.28 02/24/2025 2:31 PM EST Plan of Treatment Health Maintenance [...] 2008 INFLUENZA VACCINE (#1) 2024 COVID-19 VACCINE (1 - 2024-2 6 season) 2024 RSV VACCINE [...] this topic Medical Devices Not on file Procedures Procedure Name Priority Date/Time Associated Diagnosis Comments US THYROID GLAND Routine 03/21/2025 1:55 PM EST Nontoxic uninodular goiter ULTRASOUND GUIDED FINE NEEDLE ASPIRATION (IR) Routine 03/21/2025 8:59 AM EST Thyroid nodule TISSUE EXAM Routine 03/21/2025 8:54 AM EST FINE NEEDLE ASPIRATION Routine 03/21/2025 8:[address] NECK SOFT TISSUE WITH CONTRAST Routine 02/24/2025 5:08 PM EST from Last 3 Months Results * US Thyroid Gland (03/21/2025 1:55 PM EST) Anatomical Region Laterality Modality Neck, Head, Chest Ultrasound 03/21/2025 2:40 PM EST Impressions 03/21/2025 2:44 PM EST Large right thyroid lobe nodule, FNA would typically be recommended however it was reportedly performed this morning therefore please follow-up pathology. ACR TI-RADS risk category: TR3 (3 points) ACR TI-RADS recommendation: Fine needle aspiration. ACR TI-RADS recommendations TR5 (>7 points) - FNA if >1cm, follow-up if 0.5 - 0.9 cm every year for 5 years TR4 (4-6 points) - FNA if >1.5cm, follow-up if 1 - 1.4 cm in 1, 2, 3 and 5 years TR3 (3 points)- FNA if >2.5cm, follow-up if 1.5 - 2.4 cm in 1, 3 and 5 years TR2 (2 points) & TR1 (0 points) - No FNA and no follow-up indicated These guidelines for management of thyroid nodules are based on the ACR Thyroid Ultrasound Reporting Lexicon, June 2016: https://doi.org/10.1016.j.jacr.2017.01.046 Follow-up recommendation was communicated and documented using a closed loop communication system. Narrative 03/21/2025 2:44 PM EST US THYROID GLAND Referring clinician's provided indication for this examination in Epic: Outside Radiology Order; EVALUATE 4.5 CM THYROID NODULE SEEN ON CT TECHNIQUE: Ultrasound of the thyroid. COMPARISON: CT NECK SOFT TISSUE WITH CONTRAST FINDINGS: Total number of nodules >1 cm: 1 Background echogenicity: The gland is homogeneous. Vascularity: There is normal background vascularity to the gland. RIGHT LOBE: 6.3 cm. Nodule #: 1 Maximum size: 4.8 x 2.9 x 4.2 cm Position: Mid to lower pole Composition: Solid Echogenicity: Isoechoic Shape: Wider than tall Margins: Smooth Echogenic Foci: No calcifications Additional Echogenic foci: None Total points: 3 Significant change is size (>/= 20% in two dimensions or increase in 2mm): N/A Change in Features: N/A LEFT LOBE: 4.2 cm. No suspicious nodules are identified. ISTHMUS: 0.3 cm. No suspicious nodules are identified. Cervical lymphadenopathy: None. Parathyroid adenoma: None. Procedure Note Yue Romero MD - 03/21/2025 US THYROID GLAND Referring clinician's provided indication for this examination in Epic:Outside Radiology Order; EVALUATE 4.5 CM THYROID NODULE SEEN ON CT TECHNIQUE: Ultrasound of the thyroid. COMPARISON: CT NECK SOFT TISSUE WITH CONTRAST FINDINGS: Total number of nodules >1 cm: 1 Background echogenicity: The gland is homogeneous. Vascularity: There is normal background vascularity to the gland. RIGHT LOBE: 6.3 cm. Nodule #: 1 Maximum size: 4.8 x 2.9 x 4.2 cm Position: Mid to lower pole Composition: Solid Echogenicity: Isoechoic Shape: Wider than tall Margins: Smooth Echogenic Foci: No calcifications Additional Echogenic foci: None Total points: 3 Significant change is size (>/= 20% in two dimensions or increase in 2mm):N/A Change in Features: N/A LEFT LOBE: 4.2 cm. No suspicious nodules are identified. ISTHMUS: 0.3 cm. No suspicious nodules are identified. Cervical lymphadenopathy: None. Parathyroid adenoma: None. IMPRESSION: Large right thyroid lobe nodule, FNA would typically be recommendedhowever it was reportedly performed this morning therefore pleasefollow-up pathology. ACR TI-RADS risk category: TR3 (3 points) ACR TI-RADS recommendation: Fine needle aspiration. ACR TI-RADS recommendations TR5 (>7 points) - FNA if >1cm, follow-up if 0.5 - 0.9 cm every year for 5years TR4 (4-6 points) - FNA if >1.5cm, follow-up if 1 - 1.4 cm in 1, 2, 3 and 5years TR3 (3 points)- FNA if >2.5cm, follow-up if 1.5 - 2.4 cm in 1, 3 and 5years TR2 (2 points) & TR1 (0 points) - No FNA and no follow-up indicated These guidelines for management of thyroid nodules are based on the ACRThyroid Ultrasound Reporting Lexicon, June 2016: https://doi.org/10.1016.j.jacr.2017.01.046 Follow-up recommendation was communicated and documented using a closedloop communication system. us Car Cook MD IMG US THYROID Final Res ult * ULTRASOUND GUIDED FINE NEEDLE ASPIRATION (IR) (03/21/2025 8:59 AM EST) Anatomical Region Laterality Modality Interventional R adiography Narrative 03/21/2025 9:30 AM EST PROCEDURE: Ultrasound-guided biopsy Procedural Personnel Attending physician(s): Lalito Kilpatrick DO Fellow physician(s): None Resident physician(s): None Advanced practice provider(s): None Pre-procedure diagnosis: Palpable right thyroid nodule Post-procedure diagnosis: Same Indication: Histopathologic diagnosis Previous biopsy of same target: No Additional clinical history: None Complications: No immediate complications. IMPRESSION: Ultrasound-guided biopsy of right thyroid nodule. Plan: Specimen(s) sent for evaluation. PROCEDURE SUMMARY: - Percutaneous US-guided core needle and fine needle aspiration biopsy biopsy - Additional procedure(s): None PROCEDURE DETAILS: Pre-procedure Reference imaging for biopsy target: None Consent: Informed consent for the procedure including risks, benefits and alternatives was obtained and time-out was performed prior to the procedure. Preparation: The site was prepared and draped using maximal sterile barrier technique including cutaneous antisepsis. Anesthesia/sedation Anesthesia/sedation: No sedation Moderate sedation time (minutes): na Imaging prior to biopsy The patient was positioned supine. Initial imaging was performed. Biopsy target: - Organ or target location: Thyroid - Laterality: Right - Maximal diameter (cm): 4.6 Other findings: None Biopsy Local anesthesia was administered. Under US guidance, the biopsy needle was advanced to the target and biopsy was performed. Coaxial needle: None Core needle biopsy device: [employer] Core needle size: 20 gauge Number of core specimens: 2 Fine needle aspiration device: Needle Fine needle size: 25 gauge Number of FNA specimens: 4 On-site assessment of biopsy adequacy: Yes Additional sampling recommendations: After review of the fine needle sample, the pathologist requested core biopsies for further and complete evaluation. Preliminary assessment of sample adequacy: Adequate Needle removal The biopsy needle was removed and a sterile dressing was applied. Tract embolization: None Imaging following biopsy Immediate post-biopsy ultrasound was performed. Post-biopsy imaging findings: No hematoma Additional Details Additional description of procedure: None Registry event: V/3/g Device used: None Equipment details: None Unique Device Identifiers: Not available Specimens removed: Biopsy samples as detailed above Estimated blood loss (mL): Less than 10 Standardized report: [email or web address] Attestation Signer name: Lalito Kilpatrick I attest that I was present for the entire procedure. I reviewed the stored images and agree with the report as written. us Car Cook MD IMG IR Final Res ult * Tissue Exam (03/21/2025 8:54 AM EST) Final Pathologic Diagnosis A. RIGHT THYROID NODULE; ULTRASOUND-CHARI DED CORE BIOPSY: Benign follicular nodule. 03/22/2025 2:22 PM [facility] at 1422 EST Clinical History Pre-op diagnosis: Thyroid nodule [E04.1] 03/22/2025 2:22 PM [facility] Gross Description A. OTHER; RIGHT THYROID NODULE: Received in formalin are 2 cylindrical pieces of [place] soft tissue which measure 0.2 and 0.6 cm in length. Totally submitted in block A1. 03/22/2025 2:22 PM [facility] Grossed By Candace Meza MD 03/22/2025 2:22 PM [facility] Result Priority Level Routine 03/22/2025 2:22 PM [facility] Disclaimer By their signature above, the pathologist listed as making the Final Diagnosis certifies that they have personally reviewed the case and confirmed the diagnosis. All slides and stains were of sufficient quality to establish the diagnosis, unless otherwise stated. Due to loss of elastic tension and/or tissue shrinkage in formalin, the clinical sizes of tissue specimens may be larger than those provided in this report. 03/22/2025 2:22 PM [facility] Procedure ULTRASOUND GUIDED FINE NEEDLE ASPIRATION IR 03/22/2025 2:22 PM [facility] Tissue - General (Other) 03/21/2025 8:54 AM EST 03/21/2025 10:30 AM EST Comment:Pre-op diagnosis: Thyroid nodule [E04.1] us Car Cook MD LAB PATHOLOGY ORDERABLES Final Result [facility] [address] [place] [address] * FNA Cytology (03/21/2025 8:41 AM EST) Final Diagnosis A. FINE NEEDLE ASPIRATION: THYROID, RIGHT LARGE NODULE SPECIMEN ADEQUACY: Satisfactory for evaluation. Limited by scant cellularity. INTERPRETATION: Benign ([place] Category II). DIAGNOSIS: Findings are consistent with a benign follicular nodule. 03/22/2025 12:46 PM [facility] at 1246 EST Reviewed by KAREN Schulte(ASCP) Non/FNA Disclaimer By their signature above, the Pathologist listed as making the Final Diagnosis certifies that they have personally reviewed the case and confirmed the diagnosis. All slides and stains were of sufficient quality to establish the diagnosis, unless otherwise stated. 03/22/2025 12:46 PM [facility] Rapid Assessment A. FINE NEEDLE ASPIRATION: THYROID, RIGHT LARGE NODULE: Pass 1: Rare follicular cells. Pass 2: Blood. Pass 3: Rare follicular cells. Pass 4: Rare follicular cells. Rapid on-site assessment of diagnostic adequacy performed by: Dr. Meza on 03/21/2025. 03/22/2025 12:46 PM [facility] Clinical History Pre-op diagnosis: Thyroid nodule [E04.1] 03/22/2025 12:46 PM [facility] Gross Description A. FINE NEEDLE ASPIRATION: THYROID, RIGHT LARGE NODULE: 8 direct-smear slides received, labeled with two patient identifiers. 1 Cytolyt vial received, labeled with two patient identifiers. 1 liquid-based slide prepared. An additional sample was collected to retain for molecular testing, if warranted. 03/22/2025 12:46 PM EST [facility] A. Adequacy Satisfactory for evaluation. Limited by scant cellularity. 03/22/2025 12:46 PM EST [facility] A. Interpretation Benign ([place] Category II). 03/22/2025 12:46 PM EST [facility] A. Diagnosis Findings are consistent with a benign follicular nodule. 03/22/2025 12:46 PM EST [facility] Fine Needle Aspirate (Thyroid) 03/21/2025 8:41 AM EST 03/21/2025 11:04 AM EST Comment:Pre-op diagnosis: Thyroid nodule [E04.1] us aCr Cook MD LAB CYTOLOGY ORDERABLES F inal Result Performing Organization Address City/State/[facility] Co de Phone Number [address] [address] * CT NECK SOFT TISSUE WITH CONTRAST (02/24/2025 5:08 PM EST) MGB IMG RECOMMENDATION COMMENT Heterogeneous nodule right lobe thyroid up to 4.6 cm [facility] Anatomical Region Laterality Modality Neck Computed Tomogra phy 02/24/2025 6:06 PM EST Impressions 02/24/2025 6:16 PM EST 1. Heterogeneous nodule in the right lobe of the thyroid measuring up to 4.6 cm. Further evaluation with outpatient thyroid ultrasound/fine-needle aspiration is recommended. 2. No cervical lymphadenopathy. RECOMMENDATION: Outpatient thyroid ultrasound/fine-needle aspiration. Follow-up recommendations were communicated and documented using a closed loop communication system. Narrative 02/24/2025 6:[address] NECK SOFT TISSUE WITH CONTRAST Referring clinician's provided indication for this examination in Epic: Neck mass, initial workup TECHNIQUE: Multidetector-row CT of the neck was performed with intravenous contrast using tailored dose modulation techniques. Images were reconstructed in the axial, coronal, and sagittal planes. COMPARISON: None. FINDINGS: Aerodigestive Tract: Symmetrical mucosa. Normal epiglottis. No tonsillar enlargement. No peritonsillar or retropharyngeal fluid collection. Lymph Nodes: No lymphadenopathy. Salivary Glands: Normal. Thyroid Gland: Heterogeneous, predominantly hyperdense nodule in the right lobe of the thyroid measuring 3.8 x 2.8 x 4.6 cm (AP x TR x SI). Vessels: The major cervical vessels enhance normally. Paranasal Sinuses and Mastoids: The paranasal sinuses and mastoid air cells are well-aerated. Brain and Orbits: No abnormality in the imaged portions. Bilateral lens replacements. Lung Apices: No focal consolidation or suspicious pulmonary nodule. Calcified granulomas in the left upper lobe. Bones and Soft Tissues: No acute fracture or suspicious osseous lesion. Mild degenerative changes at C3-4. Procedure Note Aren Marinelli MD - 02/24/2025 CT NECK SOFT TISSUE WITH CONTRAST Referring clinician's provided indication for this examination in Epic:Neck mass, initial workup TECHNIQUE: Multidetector-row CT of the neck was performed with intravenouscontrast using tailored dose modulation techniques. Images werereconstructed in the axial, coronal, and sagittal planes. COMPARISON: None. FINDINGS: Aerodigestive Tract: Symmetrical mucosa. Normal epiglottis. No tonsillarenlargement. No peritonsillar or retropharyngeal fluid collection. Lymph Nodes: No lymphadenopathy. Salivary Glands: Normal. Thyroid Gland: Heterogeneous, predominantly hyperdense nodule in the rightlobe of the thyroid measuring 3.8 x 2.8 x 4.6 cm (AP x TR x SI). Vessels: The major cervical vessels enhance normally. Paranasal Sinuses and Mastoids: The paranasal sinuses and mastoid aircells are well-aerated. Brain and Orbits: No abnormality in the imaged portions. Bilateral lensreplacements. Lung Apices: No focal consolidation or suspicious pulmonary nodule.Calcified granulomas in the left upper lobe. Bones and Soft Tissues: No acute fracture or suspicious osseous lesion.Mild degenerative changes at C3-4. IMPRESSION: 1. Heterogeneous nodule in the right lobe of the thyroid measuring up to4.6 cm. Further evaluation with outpatient thyroid ultrasound/fine-needleaspiration is recommended. 2. No cervical lymphadenopathy. RECOMMENDATION: Outpatient thyroid ultrasound/fine-needle aspiration. Follow-up recommendations were communicated and documented using a closedloop communication system. us Rema Landers PA-C IMG CT XSPECIALT Y ORDERABLES Final Result from Last 3 Months Insurance [employer]IG[employer] PPO CIGNA PPO Member Subscriber Plan / Payer ( fective 2017-Present) Name:Carmelo Lemus Relation to Subscriber:Self Name:Carmelo Lemus Payer ID:[id number] (NAIC) Type:PPO Address: [place] [id number] [employer] PPO Member Subscriber Plan / Payer (Ef fective 2017-Present) Name:Carmelo Lemus Relation to Subscriber:Self Name:Carmelo Lemus Payer ID:[id number] (NAIC) Type:PPO Address: [place] [id number] [employer] PPO CIGNA PPO CIGNA PPO Care Teams Rig Manager Relationship Specialty Start Date End Date Ez Zazueta MD [address] [place] [phone] PCP - General Family Medicine 03/14/25 Additional Source Comments The information contained in this document represents components of the legal health record. It is not the complete legal health record.[facility]
--- OUTSIDE RECORDS SUMMARY | 2025-03-28 13:04 | XMS_ITS | Patient Health Record ---
Author Organization [facility] Address [address] [place] [address] Support Name Relationship Address Phone Carmelo Lemus Guarantor Unknown Unavailable Reason For Referral No Information Problems Problem Type SNOMED Code ICD Code Onset Dates Problem Status W/U Status Risk Notes Problem Ingrowing nail (218700950) Ingrowing nail (L60.0) 03/18/2021 Active confirmed Plan Of Treatment No Information Insurance Providers Payer Name Payer Address Payer Phone Subscriber Number Group Number Insured Name Patient Relationship to Insured Coverage Start Date Coverage End Date [facility] [address] [place] [address] [id number] Carmelo Lemus Self - patient is the insured [facility] [address] [address] [place] [phone] [id number] Carmelo Lemus Self - patient is the insured
--- OUTSIDE RECORDS SUMMARY | 2025-03-28 13:04 | XMS_ITS | Encounter Summary ---
Author Organization [facility] Address [address] [place] [address] [place] [phone] Phone Care Team Providers Care Assembler Wire Group Name Role Phone Ez Zazueta MD Primary Care Provider Encounter Details Date Type Department Care Team (Late st Contact Info) Description 03/21/2025 Procedure Pass [facility] [address] [place] [address] Social History Tobacco Use Types Packs/Day Years [...] on file Sexual Orientation Not on file documented as of this encounter Plan of Treatment Not on file documented as of this encounter Visit Diagnoses Not on filedocumented in this encounter Care Teams Assembler Wire Group Relationship Specialty Start Date End Date Ez Zazueta MD [address] [place] [address] PCP - General Family Medicine 03/14/25 documented as of this encounter Additional Source Comments The information contained in this document represents components of the legal health record. It is not the complete legal health record.[facility]
--- OUTSIDE RECORDS SUMMARY | 2025-03-28 13:04 | XMS_ITS | Encounter Summary ---
Author Organization [facility] Address [address] [place] [address] [place] [phone] Phone Care Team Providers Care Avid Editor Name Role Phone Pcp, Unknown Primary Care Provider Ez Castellano MD Primary Care Provider Encounter Details Date Type Department Care Team (Late st Contact Info) Description 02/24/2025 Procedure Pass [facility], Ct Scan - [facility] [address] [place] [address] Social History Tobacco Use Types Packs/Day Years [...] as food, clothing, or medical care? No 02/24/2025 In the past 12 months have y ou been in a relationship with a person who hurts, threatens, or tries to control you? No 02/24/2025 Are you denied basic needs s uch as food, clothing, or medical care? No 02/24/2025 In the past 12 months have y ou been in a relationship with a person who hurts, threatens, or tries to control you? No 02/24/2025 Sex and Gender Information Value Date Recorded Sex Assigned at Not on file Legal Sex Male 12:13 PM EST Gender Identity Not on file Sexual Orientation Not on file documented as of this encounter Plan of Treatment Not on file documented as of this encounter Visit Diagnoses Not on filedocumented in this encounter Care Teams Avid Editor Relationship Specialty Start Date End Date Pcp, Unknown PCP - General 05/02/23 03/13/25 Ez Zazueta MD [address] [place] [address] PCP - General Family Medicine 03/14/25 documented as of this encounter Additional Source Comments The information contained in this document represents components of the legal health record. It is not the complete legal health record.[facility]
== END 2025-03-28 12:27 | disposition home or self-care (01) ==
LOC: HO.HMCFM 11:45
PROVIDERS: PCP Family Medicine; Visit Provider Family Medicine
DX: R22.1 Localized swelling, mass and lump, neck (principal); D69.6 Thrombocytopenia, unspecified; M54.9 Dorsalgia, unspecified; E04.1 Nontoxic single thyroid nodule